=== PATIENT | male | born 1970 | race Caucasian/White ===

== ENCOUNTER 2024-04-15 04:26 | Observation (INO) | payer OTHER ==
[2024-04-15] MEDS ORDERED: Milk Of Magnesia 30 ML UDCUP ONE (04:45)
[2024-04-15 04:54] LABS: #Basophils 0.08 10x3/uL (0.0-0.2); #Eosinphils 0.22 10x3/uL (0.0-0.5); #Monocytes 0.56 10x3/uL (0.0-1.1); #Neutrophils 9.99 10x3/uL (1.5-8.4); %Basophils 0.6 % (0.0-2.0); %Eosinophils 1.7 % (0.0-6.0); %Lymphocytes 16.2 % (18.0-47.0); %Monocytes 4.3 % (0.0-10.0); %Neutrophils 76.9 % (40.0-75.0); Hematocrit 32.2 % (38.8-50.0); Hemoglobin 10.9 g/dL (13.5-17.5); Mean Corpuscular HGB CONC 33.9 g/dL (32.0-36.0); Mean Corpuscular Hemoglobin 29.3 pg (27.0-33.0); Mean Corpuscular Volume 86.6 fL (81.2-95.1); Mean Platelet Volume 8.6 fL (7.4-10.4); Platelet Count 295 10x3/uL (150-450); RBC Distribution Width 14.5 % (11.5-14.5); Red Blood Cell (RBC) Count 3.72 10x6/uL (4.32-5.72)
[2024-04-15 05:08] LABS: ALT (SGPT) 15 U/L (8-55); AST (SGOT) 25 U/L (5-34); Albumin 3.4 g/dL (3.5-5.0); Alkaline Phosphatase 125 U/L (40-110); Anion Gap 16 mmol/L (10-20); BUN (Urea Nitrogen) 4 mg/dL (8.4-25.7); Bilirubin, Total 0.5 mg/dL (0.2-1.2); Calc. Creatinine Clearance 0 mL/min (70-130); Calcium 9.1 mg/dL (7.8-10.44); Carbon Dioxide 25 mmol/L (22-29); Chloride 105 mmol/L (98-107); Estimated GFR 106; Globulin 2.6 g/dL (2.4-3.5); Glucose 92 mg/dL (70-105); Potassium 3.8 mmol/L (3.5-5.1); Sodium 142 mmol/L (136-145)
[2024-04-15 05:14] LABS: Troponin I Less than 0.010 ng/mL (< 0.028)
[2024-04-15] MEDS ORDERED: Nitroglycerin 0.4 MG TAB 1 EACH ONE (05:17)
[2024-04-15] MEDS ORDERED: Morphine 2 MG/ML VIAL ONE (06:05)
[2024-04-15] MEDS ORDERED: Acetaminophen 650 MG Suppository PR PRN (06:14)
[2024-04-15] MEDS ORDERED: Ondansetron PF 4 MG/2 ML Vial IVP PRN (06:14)
[2024-04-15] MEDS ORDERED: Lorazepam 1 MG TAB PO PRN (06:22)
[2024-04-15] MEDS ORDERED: Lorazepam 2 MG/ML VIAL IM PRN (06:22)
[2024-04-15] MEDS ORDERED: Labetalol HCl 100 MG/20 ML VIAL SLOW IVP PRN (06:24)
[2024-04-15] MEDS ORDERED: Electrolyte Replacement Protocol 1 EACH FS SCH (06:30)
[2024-04-15 06:50] LABS: Phosphorus 3.4 mg/dL (2.3-4.7)
[2024-04-15 06:51] LABS: Magnesium 1.5 mg/dL (1.6-2.6)
[2024-04-15 07:34] VITALS: BMI 32.6
[2024-04-15] MEDS: Morphine 4 MG/ML VIAL SLOW IVP PRN (07:58)
[2024-04-15] MEDS: Enoxaparin 40 MG (0.4 mL) SYRINGE SC SCH (08:46)
[2024-04-15] MEDS: Famotidine 20 MG TAB PO SCH (08:46)
[2024-04-15] MEDS: Multivit, Therapeutic 1 TAB PO SCH (08:47)
[2024-04-15] MEDS: Folic Acid 1 MG TAB PO SCH (08:47)
[2024-04-15] MEDS: Thiamine HCl 200 MG/2 ML VIAL SLOW IVP SCH (08:47)
[2024-04-15] MEDS: Magnesium 2 GM/50 ML(in water) 2 GM in Premix 1 BAG IVPB SCH (08:47)
[2024-04-15 08:55] LABS: Cardiac Risk 3.5 (Less than 4.5)
[2024-04-15 08:56] LABS: Troponin I Less than 0.010 ng/mL (< 0.028)
[2024-04-15] MEDS ORDERED: Lidocaine 2% Viscous Solution 20 ML, Aluminum & Magnesium Hydroxide 30 ML, Donnatal Eli... SSW SCH (09:15)
[2024-04-15] MEDS: Diazepam 5 MG TAB PO SCH (11:06)
[2024-04-15] MEDS: Pantoprazole DR 40 MG TAB PO SCH (11:06)
[2024-04-15] MEDS: Carvedilol 6.25 MG TAB PO SCH ×2 (11:06→16:48)
[2024-04-15] MEDS: Lidocaine 2% Viscous 10 mL, Alum & Magn 30 mL SSW SCH (11:07)
[2024-04-15] MEDS ORDERED: Iopamidol 370 76% 100 ML VIAL ONE (11:28)
[2024-04-15 11:30] LABS: Troponin I Less than 0.010 ng/mL (< 0.028)
[2024-04-15 13:15] LABS: Amphetamine Not Detected (NotDetected); Barbiturates Screen Not Detected (NotDetected); Benzodiazepine Screen Not Detected (NotDetected); Cocaine Metabolite Screen Not Detected (NotDetected); Methadone Not Detected (NotDetected); Methamphetamine Not Detected (NotDetected); Opiate Screen Detected (NotDetected); Oxycodone Screen Not Detected (NotDetected); Phencyclidine (PCP) Not Detected (NotDetected); THC/Cannabinoid Screen Not Detected (NotDetected); Tricyclic Screen Not Detected (NotDetected)
[2024-04-15] MEDS: Diazepam 2 MG TAB PO SCH (17:08)
[2024-04-16 04:06] LABS: #Basophils 0.06 10x3/uL (0.0-0.2); #Monocytes 0.56 10x3/uL (0.0-1.1); #Neutrophils 5.55 10x3/uL (1.5-8.4); %Basophils 0.7 % (0.0-2.0); %Eosinophils 1.2 % (0.0-6.0); %Lymphocytes 22.1 % (18.0-47.0); %Monocytes 6.9 % (0.0-10.0); %Neutrophils 68.9 % (40.0-75.0); Hematocrit 30.2 % (38.8-50.0); Mean Corpuscular HGB CONC 33.1 g/dL (32.0-36.0); Mean Corpuscular Hemoglobin 29.2 pg (27.0-33.0); Platelet Count 244 10x3/uL (150-450); RBC Distribution Width 14.8 % (11.5-14.5); Red Blood Cell (RBC) Count 3.43 10x6/uL (4.32-5.72); White Blood Cell (WBC) Count 8.1 10x3/uL (3.5-10.5)
[2024-04-16 04:09] LABS: Anion Gap 13 mmol/L (10-20); BUN (Urea Nitrogen) 7 mg/dL (8.4-25.7); Calc. Creatinine Clearance 180 mL/min (70-130); Calcium 9.1 mg/dL (7.8-10.44); Carbon Dioxide 25 mmol/L (22-29); Chloride 101 mmol/L (98-107); Estimated GFR 105; Glucose 105 mg/dL (70-105); Magnesium 1.8 mg/dL (1.6-2.6); Potassium 3.9 mmol/L (3.5-5.1); Sodium 135 mmol/L (136-145)
[2024-04-16 05:06] VITALS: TEMP 98.2
[2024-04-16] MEDS ORDERED: Lorazepam 1 MG TAB PO PRN (06:22)
[2024-04-16 08:33] VITALS: BP 124/88
[2024-04-16] MEDS: Magnesium 2 GM/50 ML(in water) 2 GM in Premix 1 BAG IVPB SCH (08:42)
[2024-04-17] MEDS ORDERED: Lorazepam 1 MG TAB PO PRN (06:22)
[2024-04-18] MEDS ORDERED: Lorazepam 0.5 MG TAB PO PRN (06:22)
[2024-04-18] MEDS ORDERED: Thiamine 100 MG TAB PO SCH (09:00)
== END 2024-04-16 09:30 | disposition home or self-care (01) ==
LOC: CSHERS 04:26 → CSHTELE 07:06
PROVIDERS: ADMIT Internal Medicine; ATTEND Family Medicine
PROC: B246ZZZ Ultrasonography of Right and Left Heart (ICD-10-PCS; principal; 2024-04-16)
DX: R07.2 Precordial pain (principal); I10 Essential (primary) hypertension; E78.5 Hyperlipidemia, unspecified; F10.10 Alcohol abuse, uncomplicated; F17.290 Nicotine dependence, other tobacco product, uncomplicated; Z98.84 Bariatric surgery status; Z98.890 Other specified postprocedural states; Y90.9 Presence of alcohol in blood, level not specified
CPT/HCPCS: 36415; 71045; 71275; 80048; 80053; 80061; 80306; 83735; 84100; 84484; 85025; 93005; 93306; 94762; 96372; 96374; 96375; 96376; G0378; J1650; J2272; J3411; J3475; Q9967